=== PATIENT | female | born 1960 | race Caucasian/White ===

== ENCOUNTER 2019-01-14 06:38 | Emergency (ER) | payer SELFPAY ==
[2019-01-14 06:47] VITALS: BP 172/86
[2019-01-14] MEDS ORDERED: CETIRIZINE 10 MG TABLET PO ONE (08:18)
[2019-01-14] MEDS ORDERED: IBUPROFEN 800 MG TABLET PO ONE (08:18)
--- NOTE | 2019-01-14 09:07 | ER Document Report ---
HPI - HPI Patient complains to provider of: sore throat Time Seen by Provider: 01/14/19 08:06 Pain Level: 3 Context: Patient is a 58-year-old female presents to the emergency department for generalized sore throat, cough, congestion for the last month. Patient states she did present to [facility] about a month ago and was diagnosed with strep pharyngitis. States she was placed on a Z-Gil and prednisone. Patient states within the next couple of days she feels as though she got worse so she represented to [place] and was placed on doxycycline, given an IM shot of ceftriaxone and her steroid dose was increased. Patient states she has taken all antibiotics as prescribed. Patient states she continues with generalized sore throat, cough, congestion. Patient's denying any fever, chest pain, abdominal pain, shortness of breath, nausea, vomiting, rash. Past medical history: Hypertension, hypothyroid, anxiety Medications: Levothyroxine, amlodipine, lisinopril Allergies: None - EENT EENT: REPORTS: Sore Throat - 30 days - REPRODUCTIVE Reproductive: DENIES: : Past Medical History - General Information source: Patient - Social History Smoking Status: Unknown if Ever Smoked Chew tobacco use (# tins/day): No Frequency of alcohol use: None Drug Abuse: None Family History: None, CAD Patient has suicidal ideation: No Patient has homicidal ideation: No - Past Medical History Cardiac Medical History: Reports: Hx Hypertension - [place] Denies: Hx Coronary Artery Disease, Hx Heart Attack Pulmonary Medical History: Denies: Hx Asthma, Hx Bronchitis, Hx COPD, Hx Pneumonia Neurological Medical History: Denies: Hx Cerebrovascular Accident, Hx Seizures Endocrine Medical History: Reports: Hx Hypothyroidism Renal/ Medical History: Denies: Hx Peritoneal Dialysis Musculoskeletal Medical History: Reports Hx Arthritis - KNEES Psychiatric Medical History: Reports: Hx Depression Past Surgical History: Reports: Hx Abdominal Surgery - Hernia Repair, Hx Appendectomy, Hx Section - x3, Hx Cholecystectomy. Denies: Hx Hysterectomy - Immunizations Hx Diphtheria, Pertussis, Tetanus Vaccination: Yes Vertical Provider Document - CONSTITUTIONAL Agree With Documented VS: Yes Notes: GENERAL: Morbidly obese alert, interacts well. No acute distress. HEAD: Normocephalic, atraumatic. No frontal or maxillary sinus tenderness noted EYES: Pupils equal, round, and reactive to light. Extraocular movements intact. ENT: Oral mucosa moist, tongue midline. Nares patent, TM's intact, nonerythematous, nonbulging bilaterally. Pharynx minorly erythematous, tonsils +1 bilaterally no exudate or palatal petechiae noted. NECK: Full range of motion. Supple. Trachea midline. LUNGS: Clear to auscultation bilaterally, no wheezes, rales, or rhonchi. No respiratory distress. HEART: Regular rate and rhythm. No murmur ABDOMEN: Soft, non-tender. Non-distended. Bowel sounds present in all 4 quadrants. EXTREMITIES: Moves all 4 extremities spontaneously. No edema, normal radial and dorsalis pedis pulses bilaterally. No cyanosis. BACK: no cervical, thoracic, lumbar midline tenderness. No saddle anesthesia, normal distal neurovascular exam. NEUROLOGICAL: Alert and oriented x3. Normal speech. cranial nerves II through XII grossly intact. PSYCH: Normal affect, normal mood. SKIN: Warm, dry, normal turgor. No rashes or lesions noted. - INFECTION CONTROL TRAVEL OUTSIDE OF THE [place] IN LAST 30 DAYS: No Course - Re-evaluation Re-evalutation: 01/14/19 09:31 Patient's rapid strep test and mononucleosis testing were both negative. 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 Patient has no cervical or anterior lymphadenopathy appreciated. Patient's voice does sound slightly hoarse and she sounds congested. Discussed with patient at length this could potentially be a postnasal drip. Discussed needs for allergy medications as well. Discussed [id number] use of Tylenol or Motrin and adding an allergy medication to her daily regimen. Patient voices understanding and stable for discharge. 01/14/19 09:34 - Vital Signs Vital signs: Temp Pulse Resp BP Pulse Ox 98 F 96 24 H 172/86 H 97 01/14/19 06:44 01/14/19 06:44 01/14/19 06:44 01/14/19 06:44 01/14/19 06:44 Discharge - Discharge Clinical Impression: Sore throat Condition: Stable Disposition: HOME, SELF-CARE Instructions: Sore Throat ([facility]) Additional Instructions: As we discussed your rapid strep test and mononucleosis testing are both negative. Likely your sore throat is due to a postnasal drip. In order to care for postnasal drip you have to dry up your nasal secretions. Please make sure you are taking an [id number]-svqxmlc allergy medication daily. Please also continue to take fqzr-moj-caxfiya Tylenol Motrin, use lozenges or any sort of throat spray. Please immediately return to the emergency room should he have any other concerns to include a fever, trouble swallowing, or if you are unable to handle your secretions. Please also make sure you follow-up with your primary care provider in the next 24-48 hours. Prescriptions: Cetirizine HCl [Zyrtec 10 mg Tablet] 1 tab PO DAILY #30 tablet Referrals: LEYLA SCOTT MD [Primary Care Provider] - Follow up as needed
== END 2019-01-14 11:01 | disposition home or self-care (01) ==
LOC: ER 06:38
DX: J02.9 Acute pharyngitis, unspecified (principal); R05 Cough; E66.01 Morbid (severe) obesity due to excess calories; I10 Essential (primary) hypertension; E03.9 Hypothyroidism, unspecified; Z79.899 Other long term (current) drug therapy
CPT/HCPCS: 36415; 86308; 87070; 87077; 87880; 99283

== ENCOUNTER → 2019-07-09 | Outpatient (CLI) | payer SELFPAY ==
--- NOTE | 2019-07-09 11:50 | RADIOLOGY REPORT (SQ) ---
EXAM DESCRIPTION: CHEST 2 VIEWS COMPLETED DATE/TIME: 07/09/2019 11:28 am REASON FOR STUDY: SHORTNESS OF BREATH COMPARISON: 09/29/2016 EXAM PARAMETERS: NUMBER OF VIEWS: two views TECHNIQUE: Digital Frontal and Lateral radiographic views of the chest acquired. RADIATION DOSE: NA LIMITATIONS: none FINDINGS: LUNGS AND PLEURA: No opacities, masses or pneumothorax. No pleural effusion. MEDIASTINUM AND HILAR STRUCTURES: No masses or contour abnormalities. HEART AND VASCULAR STRUCTURES: Heart normal size. No evidence for failure. BONES: No acute findings. HARDWARE: None in the chest. OTHER: No other significant finding. IMPRESSION: NO ACUTE RADIOGRAPHIC FINDING IN THE CHEST. TECHNICAL DOCUMENTATION: JOB ID: [id number] [employer]- All Rights Reserved Reading location - IP/workstation name: [email or web address]
== END ==
LOC: RAD 10:58
PROVIDERS: ATTEND Nurse Practitioner Family
DX: R06.02 Shortness of breath (principal); R05 Cough
CPT/HCPCS: 71046